=== PATIENT | female | born 1935 | race Caucasian/White ===

== ENCOUNTER 2016-10-06 19:20 | Emergency (ER) | payer MEDICARE, BC ==
--- NOTE | 2016-10-07 05:25 | ER ---
ADMIT: 10/06/2016 RM/LOC: ER [facility] MR#: [id number] [id number] [place] [address] Emergency Room Report SEX: F AGE: 81 : 1935 DATE: 10/06/2016 The patient is an 81-year-old female traveling [place], back home to [place], when she developed urinary frequency, dysuria for the past 2 days. Denies any fevers, chills, flank pain, hematuria or vomiting. Exam remarkable for nontoxic, afebrile, anxious female, otherwise normal exam. Urinalysis shows 2+ blood, 3+ leukocyte esterase, 462 WBCs, 317 RBCs. Treated with Macrodantin 100 mL b.i.d. #20, first dose in department. Pyridium 95 mg 2 p.o. t.i.d. x3 days, first dose in department. Push fluids. Avoid pop. Follow up primary care physician when home. Garrison Hernández MD/ marisel JOB #: [id number] CC: Garrison Hernández MD, Attending Physician Wesley Lawler MD, Family Physician Wesley Lawler MD
== END 2016-10-06 21:00 | disposition home or self-care (01) ==
LOC: ER 19:20
DX: N30.90 Cystitis, unspecified without hematuria (principal); F32.9 Major depressive disorder, single episode, unspecified; F41.9 Anxiety disorder, unspecified; E03.9 Hypothyroidism, unspecified; Z90.710 Acquired absence of both cervix and uterus; Z90.49 Acquired absence of other specified parts of digestive tract; Z88.0 Allergy status to penicillin; Z88.8 Allergy status to other drugs, medicaments and biological substances